=== PATIENT | female | born 1980 | race Caucasian/White ===

== ENCOUNTER 2017-04-06 09:11 | Inpatient (IN) | payer MEDICAID ==
[~2017-04-06] VITALS: Ht 152.4 cm; Wt 86.0 kg
[~2017-04-06 09:11] MED LIST: ACET500C5 PO; HYDR-3498 PO; NITR-58 PO
[2017-04-06 09:23] VITALS: BP 125/65; PULSE 70; RESP 19; Ht 152.4 cm; Wt 86.0 kg
--- NOTE | 2017-04-06 09:34 | TRIAGE ---
OB Triage Datetime Report Generated by CPN: 04/06/2017 09:34 Datetime: 04/06/2017 09:21 Assessment Type: Triage Time of Arrival: 04/06/2017 09:29 EGA: 38.0 Arrived By: Ambulatory Arrived From: Home Maternal Assessment Level of Consciousness: Fully Conscious DTR's/Clonus: DTRs 2+; No Clonus Headache: Denies Blurred Vision: No Respiratory Effort: Unlabored; Regular Rhythm; Equal Expansion Breath Sounds, Left: Clear and Equal Breath Sounds, Right: Clear and Equal Nausea/Vomiting: Denies RUQ Epigastric Pain: Denies Lower Extremities Edema: None Degree: None Upper Extremities Edema: None Degree: None Facial Edema: None Fall Risk Assessment History of Falling: (0) No Secondary Diagnosis: (0) No Ambulatory Aid: (0) Bedrest/Nurse Assist IV Therapy: (0) No Gait: (0) Normal/Bedrest/Immobile Mental Status: (0) Oriented to Own Ability Fall Score: 0 Fall Risk Score Definition: No Risk: No action required Datetime: 04/06/2017 09:09 Time of Arrival: 04/06/2017 09:09 Arrived By: Wheelchair Arrived From: Home Chief Complaint: PT CAME IN C/O UC'S REPEAT KEVIN FOR 04/13 Movement: Present Contractions: Regular Time Contractions Began: 04/06/2017 06:00 Contractions: 5 MIN Rupture of Membranes: Denies Vaginal Discharge: Denies Recent Sexual Intercouse: Denies Abdominal Trauma: Not Applicable Additional Patient Complaints: NONE Time Provider Notified: 04/06/2017 09:29 Provider Notified: DL Initial Plan: MONITOR AND VE
[2017-04-06] MEDS ORDERED: CEFAZOLIN 2 GM/50 ML (PMX) 50 ML IVPB SCH (10:00)
[2017-04-06] MEDS ORDERED: MISOPROSTOL 200 MCG TAB PR PRN ×2 (10:00→18:30)
[2017-04-06] MEDS ORDERED: OXYTOCIN 30 UNITS/LR 500 ML IV PRN ×2 (10:00→18:30)
[2017-04-06] MEDS ORDERED: OXYTOCIN 30 UNITS/LR 500 ML IV SCH (10:00)
[2017-04-06] MEDS ORDERED: CARBOPROST 250 MCG INJ IM PRN ×2 (10:00→18:30)
[2017-04-06] MEDS ORDERED: METHYLERGONOVINE 0.2 MG INJ IM PRN ×2 (10:00→18:30)
[2017-04-06] MEDS ORDERED: AMPICILLIN 2 GM/NS (PMX) 100 ML ONE (10:16)
[2017-04-06] MEDS: LACTATED RINGER'S 1,000 ML IV SCH ×3 (10:18→23:22)
[2017-04-06] MEDS ORDERED: AMPICILLIN 2 GM/NS (PMX) 100 ML IV ONE (10:30)
[2017-04-06 10:34] LABS: ADD SCAN DIFF NO
[2017-04-06 10:38] LABS: BASOPHILS % 0.3 % (0.0-2.0); EOSINOPHILS # 0.2 10^3/ul (0.0-0.5); EOSINOPHILS % 1.4 % (0.0-7.0); HEMATOCRIT 33.8 % (37.0-47.0); HEMOGLOBIN 10.7 g/dl (12.0-16.0); LYMPHOCYTES # 1.6 10^3/ul (0.8-2.9); LYMPHOCYTES % 14.6 % (15.0-51.0); MEAN CORPUSCULAR HEMOGLOBIN 23.7 pg (29.0-33.0); MEAN CORPUSCULAR HGB CONC 31.7 g/dl (32.0-37.0); MEAN CORPUSCULAR VOLUME 74.8 fl (82.0-101.0); MEAN PLATELET VOLUME 9.6 fl (7.4-10.4); MONOCYTE # 0.7 10^3/ul (0.3-0.9); MONOCYTES % 5.9 % (0.0-11.0); NEUTROPHIL # 8.5 10^3/ul (1.6-7.5); NEUTROPHILS % 77.1 % (39.0-77.0); PLATELET COUNT 475 10^3/UL (140-415); RED BLOOD COUNT 4.52 10^6/ul (4.20-5.40); RED CELL DISTRIBUTION WIDTH 16.2 % (11.5-14.5)
[2017-04-06] MEDS ORDERED: TERBUTALINE 1 ML ONE (10:43)
[2017-04-06] MEDS: TERBUTALINE 1 MG/ML INJ SC PRN ×2 (10:49→13:04)
[2017-04-06 10:55] LABS: INR 0.86; PARTIAL THROMBOPLASTIN TIME 24.5 Sec (25.0-35.0); PROTIME 11.7 Sec (12.2-14.2); PT RATIO 0.9
[2017-04-06] MEDS ORDERED: AMPICILLIN 1 GM/NS (PMX) 50 ML IV SCH (14:30)
[2017-04-06] MEDS ORDERED: METOCLOPRAMIDE 10 MG INJ ONE (14:59)
[2017-04-06] MEDS ORDERED: morphine SULFATE/PF (10 MG/10 ML) INJ ONE (14:59)
[2017-04-06] MEDS ORDERED: OXYTOCIN 10 UNIT INJ ONE (14:59)
[2017-04-06] MEDS ORDERED: ONDANSETRON 4 MG INJ ONE (14:59)
[2017-04-06] MEDS ORDERED: OXYTOCIN 30 UNITS/LR 500 ML IV ONE ×2 (14:59→15:37)
[2017-04-06] MEDS ORDERED: EPHEDrine SULFATE 50 MG/5 ML SYG ONE (14:59)
--- NOTE | 2017-04-06 15:54 | HP ---
Date/Time of Note Date/Time of Note DATE: 04/06/17 TIME: 15:51 OB - History Hx of Present Free Text/Dictation C/O labor pains started ar 0200 AM Last Menstrual Period: Jul 01, 2016 Estimated Due Date: Apr 20, 2017 : 3 Para: 1 Therapeutic : 1 Care: Good Care Ultrasounds: Normal mid trimester US Obstetrical Complications: None Medical Complications: None, Other (previous C/S ) Past Family/Social History * Past Medical, Surgical, Family and Obstetric Histories reviewed from chart. Blood Type: A+ Rubella: immune RPR/VDRL: Negative GBS Status: Positive HBsAG: Negative OB Admission Exam Vital Signs Vital Signs Vital Signs Date Time Temp Pulse Resp B/P Pulse Ox O2 Delivery O2 Flow Rate FiO2 04/06/17 09:23 98.6 70 19 125/65 99 Room Air Physical Exam HEENT: WNL Heart: Rhythm Normal Lungs: Clear, Equal Abdomen: WNL Extremities: Normal Reflexes: Normal Cervical Dilatation: None Effacement: 0% Station: -3 Membranes: Intact Heart Rate: 140's Accelerations: Accelerations Present Decelerations: No Decelerations Varibility: Marked Contractions on Admission: < 5 Minutes Apart Date/Time Contractions Began: 0200 AM 04/06/2017 Frequency of Contractions: q5 Duration: >60 seconds Last 72 hours Lab Results CBC & BMP 04/06/17 10:13 OB Assessment/Plan Other Assessment: term gestation labor pains previous C/S X 1 Other plan: repeat C/S DEBRA CLARK MD Apr 06, 2017 15:54
[2017-04-06] MEDS ORDERED: DIPHENHYDRAMINE 50 MG INJ IV PRN (16:00)
[2017-04-06] MEDS ORDERED: ONDANSETRON 4 MG INJ IV PRN (16:00)
[2017-04-06] MEDS ORDERED: morphine SULFATE/PF (10 MG/10 ML) INJ SPINAL ONE (16:00)
[2017-04-06] MEDS ORDERED: NALOXONE (0.4 MG/ML) INJ IV PRN (16:00)
[2017-04-06] MEDS ORDERED: morphine 2 MG INJ IV PRN ×2 (16:00)
[2017-04-06] MEDS ORDERED: EPHEDrine SULFATE 50 MG/5 ML SYG IV PRN (16:00)
[2017-04-06] MEDS ORDERED: HYDROmorphONE 1 MG/ML SYG IV PRN ×2 (16:00)
[2017-04-06] MEDS ORDERED: ACETAMINOPHEN/CODEINE #3 TAB PO PRN (18:30)
[2017-04-06] MEDS ORDERED: LANOLIN 7 GM TUBE TOP PRN (18:30)
[2017-04-06] MEDS ORDERED: NA PHOSPHATE/BIPHOS 133 ML ENEMA PR PRN (18:30)
[2017-04-06 18:37] VITALS: BP 141/70; PULSE 69; RESP 20
--- NOTE | 2017-04-06 18:56 | OPR ---
Operative Report Planned Procedure Procedure date Apr 06, 2017 Procedure(s) repeat C/S Performed by: DEBRA CLARK MD Assisting provider: AMIE WARD MD Anesthesiologist: REI GOOD MD Pre-procedure diagnosis term gestation previous C/S labor pains Anesthesia Type: spinal Procedure Description Under satisfactory anaesthesia a Pfannenstiel incision was made two fingerbreadth above and parallel to the symphysis of pubis around the previous scar and previous scar was removed Incision was extended laterally to the border of the Recti muscles on either sides. Incision was carried down with sharp and blunt dissection until fascia was reached. Anterior Recti muscle fascia was incised in mid portion and incision extended laterally to the border of skin incision. Fascia was mobilized from muscle superiorly and Recti muscles were from midline using sharp and blunt dissection. Peritoneum was visualized; Avoiding bowel and bladder it was incised . Incision was extended superiorly and inferiorly. Bladder blade was placed. Posterior peritoneum covering the lower segment of the uterus and lower segment of the uterus were incised.Low transverse uterine incision was made on lower segment of the uterus. Incision extended laterally to the border of Round Lig. on either sides and baby was delivered from OT. position . Amniotic fluid appeared clear. Cord blood was obtained and cord had 3 vessels . Placenta was delivered spontaneously and appeared intact and complete. Intrauterine cavity was rubbed with a laparotomy sponge. Uterine incision was closed in 2 layers using running stitches of No1 Monocryl. Hemostasis appeared Announcing needle, lap sponge and instrument count to be correct abdomen was closed in layers as follows: Peritoneum and Recti muscles with running stitches of 20 Vicryl. Fascia with running stitch of No 1 PDS. Subcutaneous tissue with running stitches of 20 Chromic and skin was closed using [place]. Patient tolerated the procedure well and was transferred to [facility] in good condition. Post-Procedure Post-procedure diagnosis S/P C/S Findings: Live Baby Specimen removed: No Complications: None Pt Condition post procedure: stable Disposition: PACU Physician Certification I, the undersigned physician, hereby certify that I have discussed the procedure described in this consent form with this patient (or the patient's legal welding equipment sales representative), including: * The risk and benefits of the procedure; * Any adverse reactions that may reasonably be expected to occur; * Any alternative efficacious methods of treatment which may be medically viable ; * The potential problems that may occur during recuperation; * Potential for blood transfusion and associated risks/benefits; and * Any research or economic interest I may have regarding this treatment. I further certify that the patient/legally responsible person was encouraged to ask question and that all questions were answered. DEBRA CLARK MD Apr 06, 2017 18:56
[2017-04-06 20:00] VITALS: BP 136/85; PULSE 61; RESP 18
[2017-04-06] MEDS: SENNA/DOCUSATE NA (8.6MG/50MG) TAB PO SCH (21:00)
[2017-04-06] MEDS: CEFAZOLIN 2 GM/50 ML (PMX) 50 ML IV SCH (21:09)
[2017-04-06] MEDS: IBUPROFEN 800 MG TAB PO SCH (22:00)
[2017-04-07] VITALS: BP 120/64; PULSE 73; RESP 18
[2017-04-07 04:00] VITALS: BP 109/55; PULSE 88; RESP 20
[2017-04-07] MEDS: CEFAZOLIN 2 GM/50 ML (PMX) 50 ML IV SCH ×2 (05:09→13:18)
[2017-04-07] MEDS: KETOROLAC 30 MG INJ IV PRN ×2 (05:23→11:24)
[2017-04-07] MEDS: IBUPROFEN 800 MG TAB PO SCH ×3 (06:00→21:45)
[2017-04-07 07:07] LABS: ADD SCAN DIFF NO
[2017-04-07 07:19] LABS: BASOPHILS % 0.2 % (0.0-2.0); HEMATOCRIT 28.7 % (37.0-47.0); HEMOGLOBIN 8.9 g/dl (12.0-16.0); LYMPHOCYTES # 1.7 10^3/ul (0.8-2.9); LYMPHOCYTES % 11.8 % (15.0-51.0); MEAN CORPUSCULAR HEMOGLOBIN 23.2 pg (29.0-33.0); MEAN CORPUSCULAR VOLUME 74.9 fl (82.0-101.0); MEAN PLATELET VOLUME 9.6 fl (7.4-10.4); MONOCYTES % 7.1 % (0.0-11.0); NEUTROPHIL # 11.7 10^3/ul (1.6-7.5); NEUTROPHILS % 80.5 % (39.0-77.0); PLATELET COUNT 417 10^3/UL (140-415); RED BLOOD COUNT 3.83 10^6/ul (4.20-5.40); RED CELL DISTRIBUTION WIDTH 16.3 % (11.5-14.5); WHITE BLOOD COUNT 14.6 10^3/ul (4.8-10.8)
[2017-04-07] MEDS: SENNA/DOCUSATE NA (8.6MG/50MG) TAB PO SCH ×2 (08:20→20:59)
[2017-04-07] MEDS: LACTATED RINGER'S 1,000 ML IV SCH ×3 (08:20→18:04)
[2017-04-07 08:30] VITALS: BP 116/59; PULSE 82; RESP 18
[2017-04-07] MEDS ORDERED: BISACODYL 10 MG SUPP PR ONE (09:00)
[2017-04-07 12:05] VITALS: BP 110/58; PULSE 80; RESP 16
[2017-04-07] MEDS: CLINDAMYCIN 300 MG CAP PO SCH ×3 (13:19→23:38)
--- NOTE | 2017-04-07 13:58 | PN ---
Date/Time of Note Date/Time of Note DATE: 04/07/17 TIME: 13:57 Assessment/Plan VTE Prophylaxis VTE Prophylaxis Intervention: ambulation Lines/Catheters IV Catheter Type (from Nrsg): Peripheral IV Assessment/Plan Assessment/Plan S/P C/S POD+ 1 will advance diet and ambulate Subjective 24 Hr Interval Summary passing flatus Constitutional: BM, ambulates, flatus, improved, no complaints, urine output Pain Control: well controlled Exam/Review of Systems Vital Signs Vitals Vital Signs Date Time Temp Pulse Resp B/P Pulse Ox O2 Delivery O2 Flow Rate FiO2 04/07/17 08:30 99.0 82 18 116/59 Room Air 04/06/17 09:23 99 Intake and Output 04/06/17 04/06/17 04/07/17 15:00 23:00 07:00 Intake Total 1100 ml 1425 ml 1050 ml Output Total 300 ml 1700 ml 700 ml Balance 800 ml -275 ml 350 ml Exam Free Text/Dictation abdomen: soft bs + incision: covered Constitutional: alert, oriented, well developed Psych: nl mood/affect, no complaints Head: atraumatic, normocephalic Eyes: EOMI, nl conjunctiva, nl lids, nl sclera ENMT: mucosa pink and moist, nl external ears & nose, nl lips & teeth, nl nasal mucosa & septum Neck: non-tender, supple Respiratory: clear to auscultation, normal air movement Cardiovascular: nl pulses, regular rate and rhythm Gastrointestinal: nl liver, spleen, non-tender, soft Musculoskeletal: nl extremities to inspection, nl gait and stance Extremities: normal pulses Neurological: DESKTOP ANALYST II-XII intact, nl mental status, nl speech, nl strength Skin: nl turgor, rash or lesions Lymph: nl lymph nodes Results Result Diagram: 04/07/17 0633 DEBRA CLARK MD Apr 07, 2017 13:58
[2017-04-07 16:30] VITALS: BP 101/56; PULSE 79; RESP 17
[2017-04-07 20:00] VITALS: BP 121/58; PULSE 72; RESP 20
[2017-04-07] MEDS: OXYCODONE/ACETAMINOPHEN (5/325) TAB PO PRN (20:04)
[2017-04-08] MEDS: LACTATED RINGER'S 1,000 ML IV SCH ×2 (02:04→10:04)
[2017-04-08] MEDS: OXYCODONE/ACETAMINOPHEN (5/325) TAB PO PRN ×4 (02:55→20:17)
[2017-04-08 04:00] VITALS: BP 119/59; PULSE 76; RESP 20
[2017-04-08] MEDS: CLINDAMYCIN 300 MG CAP PO SCH ×3 (05:50→17:39)
[2017-04-08] MEDS: IBUPROFEN 800 MG TAB PO SCH ×3 (05:50→21:55)
[2017-04-08 07:48] LABS: ADD SCAN DIFF NO
[2017-04-08 07:56] LABS: BASOPHILS % 0.2 % (0.0-2.0); EOSINOPHILS # 0.3 10^3/ul (0.0-0.5); EOSINOPHILS % 2.8 % (0.0-7.0); HEMATOCRIT 27.4 % (37.0-47.0); HEMOGLOBIN 8.7 g/dl (12.0-16.0); LYMPHOCYTES # 1.8 10^3/ul (0.8-2.9); LYMPHOCYTES % 17.2 % (15.0-51.0); MEAN CORPUSCULAR HEMOGLOBIN 23.9 pg (29.0-33.0); MEAN CORPUSCULAR HGB CONC 31.8 g/dl (32.0-37.0); MEAN CORPUSCULAR VOLUME 75.3 fl (82.0-101.0); MEAN PLATELET VOLUME 9.6 fl (7.4-10.4); MONOCYTE # 0.8 10^3/ul (0.3-0.9); MONOCYTES % 7.6 % (0.0-11.0); NEUTROPHIL # 7.6 10^3/ul (1.6-7.5); NEUTROPHILS % 71.6 % (39.0-77.0); PLATELET COUNT 443 10^3/UL (140-415); RED BLOOD COUNT 3.64 10^6/ul (4.20-5.40); RED CELL DISTRIBUTION WIDTH 16.6 % (11.5-14.5); WHITE BLOOD COUNT 10.6 10^3/ul (4.8-10.8)
[2017-04-08 08:15] VITALS: BP 107/68; PULSE 75; RESP 17
[2017-04-08] MEDS: SENNA/DOCUSATE NA (8.6MG/50MG) TAB PO SCH ×2 (08:24→20:17)
[2017-04-08 16:00] VITALS: BP 116/55; PULSE 77; RESP 16
[2017-04-08] MEDS ORDERED: Oxycodone/Acetamin (5/325) PO (18:42)
[2017-04-08] MEDS ORDERED: IBUP800T25 PO (18:42)
[2017-04-08 19:50] VITALS: BP 116/63; PULSE 76; RESP 18
--- NOTE | 2017-04-08 20:46 | DS ---
Date/Time of Note Date/Time of Note home next day DATE: 04/08/17 TIME: 18:35 Discharge Summary Admission/Discharge Info Admit Date/Time Apr 06, 2017 at 09:44 Discharge Date/Time 04/09/2017 Final Diagnosis S/P repeat C/S Patient Condition: Good Procedures repeat C/S Hx of Present Illness 37 y/o female underwent repeat C/S at term Hospital Course uncomplicated Home Meds Active Scripts Acetaminophen* (Tylophen*) 500 Mg Capsule, 2 CAP PO Q8H Y for PAIN AND OR ELEVATED TEMP, #20 CAP Prov:STEPHANIE ELY 10/02/16 Nitrofurantoin Monohyd Macrocr* (Macrobid*) 100 Mg Capsr, 100 MG PO BID, #14 CAP 0 Refills Prov:MARILYN GARVEY PA-C 09/11/15 Hydrocodone Bit-Acetaminophen* (Ransom*) 5-325 Mg Tab, 1 TAB PO DAILY Y for PAIN , #10 TAB Prov:MARILYN GARVEY PA-C 09/11/15 Follow-up Plan 2-3 days for staple removal Primary Care Provider Care Physician No Primary Pending Labs Laboratory Tests Test 04/08/17 07:03 White Blood Count 10.610^3/ul (4.8-10.8) Red Blood Count 3.6410^6/ul (4.20-5.40) Hemoglobin 8.7g/dl (12.0-16.0) Hematocrit 27.4% (37.0-47.0) Mean Corpuscular Volume 75.3fl (82.0-101.0) Mean Corpuscular Hemoglobin 23.9pg (29.0-33.0) Mean Corpuscular Hemoglobin Concent 31.8g/dl (32.0-37.0) Red Cell Distribution Width 16.6% (11.5-14.5) Platelet Count 96651^3/UL (140-415) Mean Platelet Volume 9.6fl (7.4-10.4) Neutrophils % 71.6% (39.0-77.0) Lymphocytes % 17.2% (15.0-51.0) Monocytes % 7.6% (0.0-11.0) Eosinophils % 2.8% (0.0-7.0) Basophils % 0.2% (0.0-2.0) Nucleated Red Blood Cells % 0.0/100WBC (0.0-0.0) Neutrophils # 7.610^3/ul (1.6-7.5) Lymphocytes # 1.810^3/ul (0.8-2.9) Monocytes # 0.810^3/ul (0.3-0.9) Eosinophils # 0.310^3/ul (0.0-0.5) Basophils # 0.010^3/ul (0.0-0.1) Nucleated Red Blood Cells # 0.010^3/ul (0.0-0.0) DEBRA CLARK MD Apr 08, 2017 18:37
--- NOTE | 2017-04-08 20:46 | DS ---
Date/Time of Note Date/Time of Note home next day DATE: 04/08/17 TIME: 18:32 Obstetrical Discharge Record Final Diagnosis Final Diagnosis: Term delivered Section Section: Repeat Condition on Discharge Physical Assessment Last Vitals: see nurses notes Voiding: Yes Bowel Movement: Yes Breast: Soft, non-tender, Filling Fundus: Firm Abdomen and Incision: soft BS + incision healing well Episiotomy: NA Calf Tenderness: No Patient Condition: Good DEBRA CLARK MD Apr 08, 2017 18:35
--- NOTE | 2017-04-08 20:46 | PD.PPDC ---
[employer] Discharge Instruction Provider Information Physician Information 37 y/o female had repeat C/S in labor Diagnosis Final Diagnosis: S/P C/S Condition Patient Condition: Good Diet Diet: Resume Regular Diet Activity/Restrictions Activity: February Shower Restrictions: No Exercising No Lifting Nothing in the Vagina Return to Work or School: Jun 12, 2017 Follow-up Follow-up with Physician: 2, 3, Day/Days (in clinic for staple removal ) Return to clinic for SMOCKER Instructions: Fever greater than 101 Chills OB Instructions: Breast Tenderness Depression Surgical Instructions: Incisional Drainage Incisional Redness DEBRA CLARK MD Apr 08, 2017 18:39
[2017-04-09] VITALS: BP 117/62; PULSE 82; RESP 16
[2017-04-09] MEDS: CLINDAMYCIN 300 MG CAP PO SCH ×4 (00:16→18:00)
[2017-04-09] MEDS: OXYCODONE/ACETAMINOPHEN (5/325) TAB PO PRN ×3 (03:44→14:26)
[2017-04-09 04:20] VITALS: BP 109/57; PULSE 85; RESP 16
[2017-04-09] MEDS: IBUPROFEN 800 MG TAB PO SCH ×2 (05:50→13:33)
[2017-04-09 08:42] VITALS: BP 126/68; PULSE 74; RESP 18
[2017-04-09] MEDS: SENNA/DOCUSATE NA (8.6MG/50MG) TAB PO SCH (08:42)
[2017-04-09] MEDS ORDERED: DIPHTH/TET/ACEL PERTUSS (ADULT) 0.5 ML VIAL IM* ONE (09:00)
[2017-04-09] MEDS ORDERED: MEASLES,MUMPS,RUBELLA VACCINE INJ SC* ONE (09:00)
== END 2017-04-09 19:05 | disposition home or self-care (01) | DRG 766 ==
LOC: OBT 09:11 → L-D 09:13 → OBT 09:42 → L-D 09:44 → PP1 18:22
PROVIDERS: ADMIT Obstetrics & Gynecology; ATTEND Obstetrics & Gynecology
PROC: 10D00Z1 Extraction of Products of Conception, Low, Open Approach (ICD-10-PCS; principal; 2017-04-06)
DX: O34.211 Maternal care for low transverse scar from previous cesarean delivery (principal); E66.9 Obesity, unspecified; O99.214 Obesity complicating childbirth; Z68.37 Body mass index [BMI] 37.0-37.9, adult; Z3A.37 37 weeks gestation of pregnancy; Z37.0 Single live birth
CPT/HCPCS: 62319; 85025; 85610; 85730; 86592; 86850; 86900; 86901; 87340; 90715; 99464; G0463; J0290; J0690; J1200; J1885; J2274; J2405; J2590; J2765; J3105; J7120